=== PATIENT | female | born 2000 | race Hispanic/Latino ===

== ENCOUNTER 2022-07-28 21:55 | Emergency (ER) | payer OTHER ==
[~2022-07-28] VITALS: Ht 165.1 cm; Wt 63.5 kg
[2022-07-28] MEDS ORDERED: IBUPROFEN 600 MG TAB PO STA (22:52)
[2022-07-28] MEDS ORDERED: AMOXICILLIN/CLAVULANATE K 875 MG TAB PO STA (22:52)
[2022-07-28] MEDS ORDERED: AMOXICILLIN500 MG PO (23:06)
[2022-07-28] MEDS ORDERED: AMOXICILLIN/CLAVULANATE K 875 MG TAB ONE (23:06)
[2022-07-28] MEDS ORDERED: IBUPROFEN 600 MG TAB ONE (23:07)
== END 2022-07-28 23:20 | disposition home or self-care (01) ==
LOC: FSED 22:22
DX: R50.9 Fever, unspecified (principal); J02.9 Acute pharyngitis, unspecified
CPT/HCPCS: 83518; 87400; 99283